=== PATIENT | female | born 1995 | race African-American/Black ===

== ENCOUNTER → 2017-08-29 | Outpatient (CLI) | payer OTHER ==
[~2017-08-29] MED LIST: NUVAMIS2; SERT-155 PO
--- NOTE | 2017-09-01 22:00 | SLEEPCENT ---
DATE OF PROCEDURE: 08/29/2017 REFERRING PHYSICIAN: Nubia Stovall Nocturnal polysomnography was performed for evaluation of sleep physiology in this patient with a history of excessive somnolence. INTERPRETATION: 7 hours and 3 minutes of data were reviewed. There were 365 minutes of sleep identified. Sleep latency was mildly prolonged at 29 minutes. Rapid eye movement (REM) latency short at 55 minutes. Sleep architecture was good with four REM cycles of progressive length. Overall sleep efficiency was 88.2%. Electrocardiogram showed a sinus rhythm with an average heart rate of 76 beats per minute. EEG showed no focal events. Normal waveforms for awake and sleep. There were only four respiratory events identified of 10 seconds in duration or greater for a respiratory event index well within normal limits at 0.7. There was some snoring noted. Respiratory related arousals occurred only 1.8 times per hour when arousals from snoring were included. There was occasional limb activity appreciated. Limb movement arousal index was 2.3 and remaining measures of sleep physiology were normal. IMPRESSION: Normal nocturnal polysomnography with snoring.
== END ==
LOC: M SLEEP 19:53
PROVIDERS: ATTEND Nurse Practitioner Adult Health
DX: G47.30 Sleep apnea, unspecified (principal)

== ENCOUNTER 2017-11-28 08:15 | Emergency (ER) | payer OTHER | END 2017-11-28 11:07 | disposition home or self-care (01) | LOC: M ED 08:15 | DX: L76.82 Other postprocedural complications of skin and subcutaneous tissue (principal); F41.9 Anxiety disorder, unspecified; F33.9 Major depressive disorder, recurrent, unspecified | CPT/HCPCS: 76857 ==